=== PATIENT | female | born 1940 | race Caucasian/White ===

== ENCOUNTER 2021-05-08 09:59 | Inpatient (IN) | payer OTHER, BC ==
[2021-05-08] MEDS ORDERED: LACTATED RINGERS SOLUTION 1000 ML INFUS.BAG IV ONE (11:42)
[2021-05-08] MEDS ORDERED: MECLIZINE HCL 25 MG TABLET (FP) PO ONE (11:48)
[2021-05-08] MEDS ORDERED: MECLIZINE HCL 25 MG TABLET (FP) ONE ×2 (12:00→12:08)
[2021-05-08 13:08] LABS: BASO % 1.6 % (0-2.0); EOS % 0.6 % (0-4.5); HEMATOCRIT 36.3 % (32.4-45.2); HEMOGLOBIN 12.4 GM/dL (10.7-15.3); LYMPH % 18.4 % (8-40); MCH 29.4 pg (25.7-33.7); MCHC 34.2 g/dl (32.0-36.0); MEAN CELL VOLUME 86.2 fl (80-96); MONO % 7.9 % (3.8-10.2); NEUT % 71.5 % (42.8-82.8); PLATELET COUNT 315 10^3/uL (134-434); RBC 4.21 M/mm3 (3.60-5.2); RDW 14.5 % (11.6-15.6); WHITE BLOOD COUNT 6.5 K/mm3 (4.0-10.0)
[2021-05-08 13:15] LABS: INR 0.97 (0.83-1.09); PROTHROMBIN TIME (PATIENT) 11.9 SEC (9.7-13.0)
[2021-05-08 13:17] LABS: ACTIVATED PTT 25.9 SECONDS (25.2-36.5)
[2021-05-08 13:34] LABS: CHLORIDE 104 mmol/L (98-107); SODIUM 139 mmol/L (136-145)
[2021-05-08 13:36] LABS: CALCIUM 8.5 mg/dL (8.5-10.1)
[2021-05-08 13:37] LABS: ALBUMIN 3.2 g/dl (3.4-5.0); ANION GAP 8 MMOL/L (8-16); CO2 27 mmol/L (21-32); GLUCOSE,RANDOM 121 mg/dL (74-106)
[2021-05-08 13:40] LABS: CREATININE 0.6 mg/dL (0.55-1.3); SGOT/AST 33 U/L (15-37); SGPT/ALT 20 U/L (13-61)
[2021-05-08 13:41] LABS: BILIRUBIN,TOTAL 1.2 mg/dL (0.2-1); TOT PROT 6.5 g/dl (6.4-8.2)
[2021-05-08 13:43] LABS: ALK PHOS 87 U/L (45-117)
[2021-05-08] MEDS ORDERED: MECLIZINE HCL 25 MG TABLET (FP) PO PRN (17:23)
[2021-05-08] MEDS ORDERED: IBUPROFEN 400 MG TABLET (FP) PO ONE (17:23)
[2021-05-08] MEDS ORDERED: ACETAMINOPHEN 325 MG TABLET (FP) ONE (17:32)
[2021-05-08] MEDS: ACETAMINOPHEN 325 MG TABLET (FP) PO PRN (17:40)
[2021-05-08 23:18] VITALS: BMI 24.7
[2021-05-09 07:28] LABS: BASO % 1.2 % (0-2.0); EOS % 1.4 % (0-4.5); HEMATOCRIT 33.1 % (32.4-45.2); HEMOGLOBIN 11.4 GM/dL (10.7-15.3); LYMPH % 22.1 % (8-40); MCH 29.6 pg (25.7-33.7); MCHC 34.5 g/dl (32.0-36.0); MEAN CELL VOLUME 85.7 fl (80-96); MEAN PLT VOLUME 6.7 fl (7.5-11.1); MONO % 8.9 % (3.8-10.2); NEUT % 66.4 % (42.8-82.8); PLATELET COUNT 275 10^3/uL (134-434); RBC 3.86 M/mm3 (3.60-5.2); RDW 14.5 % (11.6-15.6)
[2021-05-09 07:54] LABS: CHOLESTEROL 149 mg/dL (50-200)
[2021-05-09 07:55] LABS: LDL CHOLESTEROL (ONLY SJRH) 76 mg/dL (5-100); TRIGLYCERIDES 120 mg/dL (0-150)
[2021-05-09 07:58] LABS: HDL CHOLESTEROL 57 mg/dL (40-60)
[2021-05-09 08:01] LABS: ALBUMIN 2.9 g/dl (3.4-5.0); BLOOD UREA NITROGEN 4.2 mg/dL (7-18); CALCIUM 8.4 mg/dL (8.5-10.1); MAGNESIUM 1.8 mg/dL (1.8-2.4)
[2021-05-09 08:05] LABS: CREATININE 0.4 mg/dL (0.55-1.3)
[2021-05-09 08:06] LABS: BILIRUBIN,TOTAL 1.2 mg/dL (0.2-1); TOT PROT 5.6 g/dl (6.4-8.2)
[2021-05-09] MEDS: ACETAMINOPHEN 325 MG TABLET (FP) PO PRN (08:08)
[2021-05-09] MEDS ORDERED: ENOXAPARIN NA (PORCINE) 40 MG/0.4 ML DISP.SYRIN SQ SCH (10:00)
[2021-05-09] MEDS ORDERED: SODIUM CHLORIDE 500 ML IV SCH (10:30)
[2021-05-09 14:12] VITALS: BP 126/72; PULSE 96; TEMP 98.8
== END 2021-05-09 17:16 | disposition home or self-care (01) | DRG 312 ==
LOC: JER 09:59 → JERBED 11:49 → OBSVTOIN 17:21 → J4W 20:52
PROVIDERS: ATTEND Internal Medicine
DX: I95.1 Orthostatic hypotension (principal); E78.5 Hyperlipidemia, unspecified; E11.9 Type 2 diabetes mellitus without complications; I10 Essential (primary) hypertension; E03.9 Hypothyroidism, unspecified; F41.9 Anxiety disorder, unspecified
CPT/HCPCS: 36415; 70450-TC; 70551-TC; 71045-TC-FY; 80053; 80061; 82550; 83721; 83735; 84436; 84443; 84484; 85025; 85610; 85730; 93005; 93010; 93306-TC; 93970; 97116-GP; 97161-GP; 99285-25; C9803; G0378; U0003; U0005

== ENCOUNTER 2023-05-11 10:06 | Observation (INO) | payer OTHER, BC ==
[2023-05-11 10:16] VITALS: BMI 21.9
[2023-05-11] MEDS ORDERED: ADENOSINE 6 MG/2 ML VIAL IVPUSH ONE ×2 (10:28→10:54)
[2023-05-11] MEDS ORDERED: METOPROLOL TARTRATE 5 MG/5 ML VIAL ONE (10:42)
[2023-05-11] MEDS ORDERED: METOPROLOL TARTRATE 5 MG/5 ML VIAL IVPUSH ONE (10:53)
[2023-05-11] MEDS ORDERED: SODIUM CHLORIDE 1,000 ML IV STA (10:53)
[2023-05-11] MEDS ORDERED: ASPIRIN 81 MG CHEWABLE TABLETS PO ONE (10:53)
[2023-05-11 11:36] LABS: BASO % 1.1 % (0-2.0); EOS % 0.3 % (0-4.5); HEMATOCRIT 40.1 % (32.4-45.2); HEMOGLOBIN 13.2 GM/dL (10.7-15.3); LYMPH % 34.9 % (8-40); MCH 27.5 pg (25.7-33.7); MEAN CELL VOLUME 83.2 fl (80-96); MEAN PLT VOLUME 7.1 fl (7.5-11.1); MONO % 6.3 % (3.8-10.2); NEUT % 57.4 % (42.8-82.8); PLATELET COUNT 329 10^3/uL (134-434); RBC 4.82 M/mm3 (3.60-5.2); RDW 14.7 % (11.6-15.6); WHITE BLOOD COUNT 7.3 K/mm3 (4.0-10.0)
[2023-05-11 11:37] LABS: CALCIUM 9.6 mg/dL (8.5-10.1)
[2023-05-11 11:38] LABS: ALBUMIN 3.6 g/dl (3.4-5.0); BLOOD UREA NITROGEN 12.6 mg/dL (7-18)
[2023-05-11 11:41] LABS: CREATININE 0.9 mg/dL (0.55-1.3)
[2023-05-11 11:43] LABS: BILIRUBIN,TOTAL 0.8 mg/dL (0.2-1); TOT PROT 6.6 g/dl (6.4-8.2)
[2023-05-11 11:46] LABS: INR 0.94 (0.83-1.09); PROTHROMBIN TIME (PATIENT) 10.9 SEC (9.7-13.0)
[2023-05-11 11:49] LABS: ACTIVATED PTT 28.6 SECONDS (25.2-36.5)
[2023-05-11] MEDS ORDERED: ASPIRIN COATED 81 MG TABLET.EC ONE (12:07)
[2023-05-11] MEDS ORDERED: LISINOPRIL 20 MG TABLET PO ONE (12:27)
[2023-05-11] MEDS ORDERED: LEVOTHYROXINE NA 112 MCG TABLET (FP) PO ONE (12:27)
[2023-05-11] MEDS ORDERED: METOPROLOL TARTRATE 25 MG TABLET (FP) PO ONE (12:28)
[2023-05-11] MEDS ORDERED: LEVOTHYROXINE NA 88 MCG TABLET (FP) ONE (13:19)
[2023-05-11] MEDS ORDERED: METOPROLOL TARTRATE 25 MG TABLET (FP) ONE (13:19)
[2023-05-11] MEDS ORDERED: LISINOPRIL 20 MG TABLET ONE (13:19)
[2023-05-11] MEDS ORDERED: LEVOTHYROXINE NA 25 MCG TABLET (FP) ONE (13:20)
[2023-05-11] MEDS: LISINOPRIL 20 MG TABLET PO SCH (21:59)
[2023-05-11] MEDS: HEPARIN NA (PORCINE) 5,000 UNITS/ML 1ML VIAL SQ SCH (21:59)
[2023-05-11] MEDS ORDERED: ATORVASTATIN CA 20 MG TABLET (FP) PO SCH (22:00)
[2023-05-12] MEDS ORDERED: LEVOTHYROXINE NA 100 MCG TABLET (FP) PO SCH (07:00)
[2023-05-12 09:25] VITALS: TEMP 98.7
[2023-05-12] MEDS ORDERED: metoPROLOL SUCCINATE 25 MG TAB.SR.24H (FP) PO SCH (10:00)
[2023-05-12] MEDS: LISINOPRIL 20 MG TABLET PO SCH (10:28)
[2023-05-12] MEDS: HEPARIN NA (PORCINE) 5,000 UNITS/ML 1ML VIAL SQ SCH (10:28)
[2023-05-12 13:52] VITALS: BP 144/88; PULSE 60; RESP 21
[2023-05-12] MEDS ORDERED: metoPROLOL SUCCINATE 25 MG TAB.SR.24H (FP) PO ONE (14:15)
== END 2023-05-12 15:13 | disposition home or self-care (01) ==
LOC: JER 10:06 → UNDOADMOB 12:41 → INTOOBSV 12:41 → JERBED 12:41 → J2W 20:02
PROVIDERS: ADMIT Internal Medicine; ATTEND Internal Medicine
PROC: 3E033GC Introduction of Other Therapeutic Substance into Peripheral Vein, Percutaneous Approach (ICD-10-PCS; principal; 2023-05-11)
PROC: 3E023GC Introduction of Other Therapeutic Substance into Muscle, Percutaneous Approach (ICD-10-PCS; 2023-05-11)
PROC: 3E033GC Introduction of Other Therapeutic Substance into Peripheral Vein, Percutaneous Approach (ICD-10-PCS; 2023-05-11)
PROC: 3E0337Z Introduction of Electrolytic and Water Balance Substance into Peripheral Vein, Percutaneous Approach (ICD-10-PCS; 2023-05-11)
DX: I47.9 Paroxysmal tachycardia, unspecified (principal); R73.9 Hyperglycemia, unspecified; E03.9 Hypothyroidism, unspecified; E78.5 Hyperlipidemia, unspecified
CPT/HCPCS: 36415; 71045-TC-FY; 80053; 82550; 82962; 83036; 83735; 84439; 84443; 84479; 84484; 85025; 85610; 85730; 93005; 93010; 93306-TC; 96361; 96372; 96374; 96375; 99285-25; G0378; J1644